=== PATIENT | male | born 1995 | race Caucasian/White ===

== ENCOUNTER 2017-06-07 09:06 | Emergency (ER) | payer MEDICAID, OTHER ==
[~2017-06-07] VITALS: Ht 172.7 cm; Wt 85.0 kg
[~2017-06-07 09:06] MED LIST: NOCURR
[2017-06-07 11:29] VITALS: BP 146/71
== END 2017-06-07 11:57 | disposition home or self-care (01) ==
LOC: EMS 09:08
DX: J02.9 Acute pharyngitis, unspecified (principal); F12.90 Cannabis use, unspecified, uncomplicated; Z87.891 Personal history of nicotine dependence
CPT/HCPCS: 87430; 99283

== ENCOUNTER 2017-10-18 06:41 | Emergency (ER) | payer OTHER ==
[~2017-10-18] VITALS: Ht 175.3 cm; Wt 77.3 kg
[2017-10-18 08:10] VITALS: BP 124/78
[2017-10-18] MEDS ORDERED: PENICILLIN G BENZATHINE LA 1,200,000 UNITS/2 ML SYRINGE IM ONE (08:30)
== END 2017-10-18 08:44 | disposition home or self-care (01) ==
LOC: EMS 06:42
DX: J02.9 Acute pharyngitis, unspecified (principal); F12.10 Cannabis abuse, uncomplicated; Z87.891 Personal history of nicotine dependence
CPT/HCPCS: 96372; 99283; J0561

== ENCOUNTER 2017-12-19 10:20 | Emergency (ER) | payer OTHER ==
[~2017-12-19] VITALS: Ht 170.2 cm; Wt 90.9 kg
[2017-12-19 12:46] VITALS: BP 128/78
== END 2017-12-19 12:55 | disposition home or self-care (01) ==
LOC: EMS 10:22
DX: J02.9 Acute pharyngitis, unspecified (principal); F12.90 Cannabis use, unspecified, uncomplicated; Z87.891 Personal history of nicotine dependence; Z96.642 Presence of left artificial hip joint
CPT/HCPCS: 99283

== ENCOUNTER 2017-12-21 07:54 | Emergency (ER) | payer OTHER ==
[~2017-12-21] VITALS: Ht 170.2 cm; Wt 90.5 kg
[2017-12-21] MEDS ORDERED: PENI500T2 PO (08:02)
[2017-12-21 09:41] LABS: BASOPHILS % (AUTO) 0.7 % (0.0-2.0); EOSINOPHILS % (AUTO) 3.4 % (1.0-6.0); HEMATOCRIT 46.2 % (41-53); HEMOGLOBIN 16.1 g/dL (13.5-17.5); LYMPHOCYTES # (AUTO) 1.3 K/uL (1.0-4.8); MEAN CORPUSCULAR HEMOGLOBIN 30.9 pg (26.0-34.0); MEAN CORPUSCULAR HGB CONC 34.7 G/dL (31.0-37.0); MEAN CORPUSCULAR VOLUME 89 fL (80-100); MONOCYTES # (AUTO) 0.5 K/uL (0.1-1.0); MONOCYTES % (AUTO) 7.6 % (2.0-9.0); NEUTROPHILS # (AUTO) 4.5 K/uL (1.8-7.7); NEUTROPHILS % (AUTO) 68.3 % (40.0-70.0); PLATELET COUNT (AUTO) 169 K/uL (150-450); RED CELL DISTRIBUTION WIDTH 14.2 % (11.5-14.5)
[2017-12-21] MEDS ORDERED: ACETAMINOPHEN 500 MG TABLET PO ONE (09:45)
[2017-12-21 09:53] LABS: MONOTEST NEGATIVE (NEGATIVE)
[2017-12-21 09:58] LABS: ANION GAP 8 mmol/L (8-16); CALCIUM, TOTAL 9.1 mg/dL (8.8-10.5); CARBON DIOXIDE 29 mmol/L (22-29); CHLORIDE 104 mmol/L (98-107); CREATININE 0.89 mg/dL (0.60-1.30); GLOMERULAR FILTR. RATE CALC > 60 mL/min (>60); GLUCOSE,RANDOM 105 mg/dL (70-110); POTASSIUM 4.3 mmol/L (3.5-5.1); SODIUM SERUM 141 mmol/L (136-145); UREA NITROGEN, BLOOD 13 mg/dL (7-18)
[2017-12-21 10:02] LABS: ALANINE AMINOTRANSFERASE 167 U/L (12-78); ALBUMIN 3.8 g/dL (3.4-5.0); ALKALINE PHOSPHATASE 65 U/L (46-116); ASPARTATE AMINOTRANSFERASE 43 U/L (15-37); BILIRUBIN,TOTAL 0.6 mg/dL (0.1-1.0); TOTAL PROTEIN, SERUM 7.7 g/dL (6.4-8.2)
[2017-12-21 11:00] LABS: INFLUENZA TYPE A NEGATIVE FOR TYPE A (NEGATIVE); INFLUENZA TYPE B NEGATIVE FOR TYPE B (NEGATIVE)
[2017-12-21 11:40] VITALS: BP 119/63
[2017-12-21 15:41] LABS: RAPID PLASMA REAGIN NONREACTIVE (NONREACTIVE)
== END 2017-12-21 12:20 | disposition home or self-care (01) ==
LOC: EMS 07:55
DX: R21 Rash and other nonspecific skin eruption (principal); F12.90 Cannabis use, unspecified, uncomplicated; Z87.891 Personal history of nicotine dependence; Z96.642 Presence of left artificial hip joint
CPT/HCPCS: 86063; 86308; 86592; 87804; 99284

== ENCOUNTER 2023-11-26 10:37 | Emergency (ER) | payer OTHER ==
[~2023-11-26] VITALS: Ht 175.3 cm; Wt 72.7 kg
[~2023-11-26 10:37] MED LIST changes: -NOCURR; +PENI500T2 PO
[2023-11-26 10:41] VITALS: BP 99/60; PULSE 58; RESP 18; TEMP 97.7; O2SAT 98
[2023-11-26] MEDS: IBUPROFEN 600 MG TABLET PO ONE (12:45)
[2023-11-26] MEDS ORDERED: METH-659 PO (13:39)
[2023-11-26] MEDS ORDERED: IBUP-2088 PO (13:39)
== END 2023-11-26 14:11 | disposition home or self-care (01) ==
LOC: EMS 10:37
DX: S40.011A Contusion of right shoulder, initial encounter (principal); Z87.891 Personal history of nicotine dependence; Z96.642 Presence of left artificial hip joint; W11.XXXA Fall on and from ladder, initial encounter; Y93.89 Activity, other specified; Y92.89 Other specified places as the place of occurrence of the external cause; Y99.8 Other external cause status
CPT/HCPCS: 99283